=== PATIENT | female | born 1950 | race Caucasian/White ===

== ENCOUNTER 2018-04-09 07:04 | Inpatient (IN) ==
--- NOTE | 2018-04-08 20:58 | Discharge Summary ---
<Nicole Zambrano E - Last Filed: 04/08/18 20:56> Date of Encounter: 04/08/18 - Discharge Diagnosis (1) Status post total replacement of right shoulder Priority: Primary Status: Acute (2) Rotator cuff tear arthropathy of right shoulder Priority: Primary Status: Chronic (3) Overactive bladder Priority: Secondary Status: Chronic (4) FAUSTINO (obstructive sleep apnea) Priority: Secondary Status: Chronic (5) Obesity Priority: Secondary Status: Chronic Qualifiers: Obesity type: unspecified obesity type Obesity classification: unspecified obesity classification Serious obesity comorbidity presence: unspecified whether serious comorbidity present Qualified Code(s): E66.9 - Obesity, unspecified (6) Lymphedema Priority: Secondary Status: Chronic (7) Hypertension Priority: Secondary Status: Chronic Qualifiers: Hypertension type: unspecified Qualified Code(s): I10 - Essential (primary ) hypertension - Hospital Course Hospital course: Ms. Alicea is a 67 year old female - Time Spent with Patient Total time spent providing and/or coordinating discharge services: - Discharge Medications Home Medications: OxyCODONE Immed Rel [Roxicodone 5 MG] 5 mg PO Q6HR PRN 7 Days #28 tablet [Rx] Aspirin 81 mg PO DAILY 04/09/18 [History] Chlorthalidone 12.5 mg PO DAILY 04/09/18 [History] Methylphenidate HCl [Metadate ER] 20 mg PO DAILY 04/09/18 [History] Metoprolol XL (24 HR) Succ [Toprol Xl] 25 mg PO BID 04/09/18 [History] Mirabegron [Myrbetriq] 50 mg PO DAILY 04/09/18 [History] Multivitamin [One Daily Essential] 1 tab PO DAILY 04/09/18 [History] Naproxen [Naprosyn] 500 mg PO BID 04/09/18 [History] PARoxetine HCl [Paroxetine HCl] 30 mg PO DAILY 04/09/18 [History] traZODone [TraZODone] 50 mg PO HS 04/09/18 [History] Allergies/Adverse Reactions: 3 Allergy/AdvReac Type Severity Reaction Status Date / Time Sulfa (Sulfonamide Allergy Swelling Verified 04/09/18 07:27 Antibiotics) of the Eye scopolamine AdvReac See Verified 04/09/18 07:27 Comments Primary care physician: Fabrice Bates MD - Patient Status Disposition: Transfer Inpatient Rehab Fac Condition: Good - Discharge Instructions Follow Up With: Fabrice Bates MD [Primary Care Provider] - <Estefany Castorenamyriam Riosh - Last Filed: 04/10/18 06:54> Orders not resulted at time of discharge: Pending orders 04/09/18 01:00 XR shoulder complete RT [XR] Routine Hemoglobin and Hematocrit [HEME] Routine Date of Encounter: 04/10/18 Time of Encounter: 06:53 - Discharge Diagnosis (1) Morbid obesity with BMI of 45.0-49.9, adult Priority: Secondary Status: Chronic (2) Rotator cuff tear arthropathy of right shoulder Priority: Primary Status: Chronic (3) Overactive bladder Priority: Secondary Status: Chronic (4) FAUSTINO (obstructive sleep apnea) Priority: Secondary Status: Chronic (5) Lymphedema Priority: Secondary Status: Chronic (6) Hypertension Priority: Secondary Status: Chronic Qualifiers: Hypertension type: unspecified Qualified Code(s): I10 - Essential (primary ) hypertension (7) Status post total replacement of right shoulder Priority: Primary Status: Acute - Hospital Course Hospital course: Ms. Alicea is a 67 year old female Status post right total shoulder replacement The patient had an uneventful postoperative course. They received antibiotics and physical therapy and were discharged in stable condition. There will follow -up in the office in 2 weeks. - Time Spent with Patient Total time spent providing and/or coordinating discharge services: Primary care physician: Fabrice Bates MD - Patient Status Functional capacity at discharge: independent ambulation Overall status at discharge: patient is progressing back to baseline
[2018-04-09] MEDS ORDERED: CeFAZolin Syr 2,000MG/20 ML 2,000 MG/20 ML SYRINGE IVPB ONE (07:32)
[2018-04-09] MEDS ORDERED: Lidocaine -MPF 4% 5 ML AMPUL ONE (07:33)
[2018-04-09] MEDS ORDERED: *HR* Propofol 200 MG/20 ML VIAL IVP ONE ×2 (07:34→10:13)
[2018-04-09] MEDS ORDERED: *HR* FentaNYL (PF) 100 MCG/2 ML VIAL ONE (07:34)
[2018-04-09] MEDS ORDERED: Dexamethasone 4 MG/ML VIAL ONE (07:34)
[2018-04-09] MEDS ORDERED: Ondansetron 4 MG/2 ML VIAL ONE (07:34)
[2018-04-09] MEDS ORDERED: *HR* Rocuronium Bromide 50 MG/5 ML VIAL ONE (07:34)
[2018-04-09] MEDS ORDERED: Lidocaine -MPF 2% 2 ML VIAL ONE (07:34)
[2018-04-09] MEDS ORDERED: *HR* Succinylcholine 200 MG/10 ML VIAL IVP ONE (07:34)
[2018-04-09] MEDS ORDERED: *HR* Midazolam HCl 2 MG/2 ML VIAL ONE (07:34)
[2018-04-09] MEDS ORDERED: Ringers Solution, Lactated 1,000 ML IVC SCH ×2 (07:45→12:25)
--- NOTE | 2018-04-09 07:52 | History & Physical Report ---
Date of Encounter: 04/09/18 Time of Encounter: 07:52 24 Hour HP Update - Instructions Instructions: If the History and Physical is less than 30 days old and was completed prior to A.M. admission and or procedure and has NOT been updated on calendar day of procedure please complete this update prior to performing procedure. - Update Patient reports changes in Medical Condition: No Changes in examination, assessment, or condition: No Changes in Medication: No Preop tests/diagnostics Reviewed: Yes Surgery Remains Indicated: Yes Consent for Planned Operative Procedure(s) Verified: Yes - Pre-Operative Checklist Preoperative Checklist Indicated: No Prophylactic Antibiotic Ordered: Yes Is VTE Prophylaxis Indicated?: Yes
[2018-04-09] MEDS ORDERED: Ethanol\\Acetic Acid\\Na Ace\\Ben 1,000 ML IRRIG.SOLN IR ONE (07:58)
[2018-04-09] MEDS ORDERED: Propofol 500 MG/50 ML INFUS..BTL ONE (08:01)
[2018-04-09] MEDS ORDERED: ROPIVACAINE HCL/PF 0.5% 30 ML VIAL ONE (08:04)
[2018-04-09] MEDS ORDERED: Bupivacaine/Clonidine Syringe 1 EACH SYRINGE ONE (08:05)
--- NOTE | 2018-04-09 08:06 | Anesthesia Evaluation PreOp ---
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 History: Denies Any Significant HX Other Medical History: Other (MORBID OBESITY BMI 45, NARCOLEPSY, JASMIN LE LYMPHEDEMA) Anesthesia History: Past Anesthesia, Problems (SLOW TO WAKE UP, PONV, URINE RETENTION WITH SCOP PATCH) Alcohol Use: none Drug use: none Medications and Allergies OxyCODONE Immed Rel [Roxicodone 5 MG] 5 mg PO Q6HR PRN 7 Days #28 tablet [Rx] Aspirin 81 mg PO DAILY 04/09/18 [History] Chlorthalidone 25 mg PO DAILY 04/09/18 [History] Methylphenidate HCl [Methylphenidate ER] 10 mg PO DAILY 04/09/18 [History] Metoprolol XL (24 HR) Succ [Toprol Xl] 25 mg PO BID 04/09/18 [History] Mirabegron [Myrbetriq] 50 mg PO DAILY 04/09/18 [History] Multivitamin [One Daily Essential] 1 tab PO DAILY 04/09/18 [History] Naproxen [Naprosyn] 500 mg PO BID 04/09/18 [History] PARoxetine HCl [Paroxetine HCl] 20 mg PO DAILY 04/09/18 [History] traZODone [TraZODone] 50 mg PO HS 04/09/18 [History] 3 Allergy/AdvReac Type Severity Reaction Status Date / Time Sulfa (Sulfonamide Allergy Swelling Verified 04/09/18 07:27 Antibiotics) of the Eye scopolamine AdvReac See Verified 04/09/18 07:27 Comments - Meds/Allergy Pre-op Review Medications Reviewed: Yes Allergies Reviewed: Yes Beta Blockers on Current Med List: Yes If Beta Blockers taken, Date/Time (Last Dose taken): AM Anesthesia Results - Labs CR 0.97, CA 9.3, K 4.0, HB 15 - Imaging EKG: report reviewed (NSR) Anesthesia Exam O2 Sat Height 1.6 m Height 1.6 m Weight 115.666 kg Weight 115.666 kg O2 Sat by Pulse Oximetry 96 Vital Signs Temp Pulse Resp BP Pulse Ox 98.3 F 58 18 138/72 96 04/09/18 07:29 04/09/18 07:29 04/09/18 07:29 04/09/18 07:29 04/09/18 07:29 NPO (# of Hours): 8 - HEENT Pupil (Motor): Pupils equal Mallampati: IV Teeth: Normal Oral Opening: Greater than 3 - Cardiac Rhythm: Regular - Pulmonary Breath Sounds: bilateral Clear Anesthesia Assess/Plan ASA Score: 3 Modified Joni Scale for Level of Consciousness: Cooperative, oriented, and tranquil Anesthetic Plan: General, Regional (FOR POST OP PAIN) Monitoring Plan: Standard Monitors Recovery Plan: PACU Anes Supervising Prov Stmt: Patient informed and consented. Risks, benefits, and alternatives discussed. Patient wishes to proceed.
--- NOTE | 2018-04-09 08:50 | Anesthesia Procedures ---
Date of Encounter: 04/09/18 Time of Encounter: 08:40 Procedures: Anesthesia - Nerve Block Procedure Date: 04/09/18 Time: 08:40 Allergies/Adv Reactions: sulfa, scopalomine patch Pre-op Diagnosis: Right Shoulder Rotator Cuff Arthropathy Surgical Procedure: Reverse Right Total Shoulder Arthroplasty Checklist: Correct Patient Identifier, Correct procedure, History checked Correct side: Right Blood Thinner: No Monitor Applied: EKG Supplemental Oxygen via Nasal Cannula (L/min): 3 Sedation: Versed (mg): 2 Sedation: Fentanyl (mcg): 100 Indication: Post Op Analgesia Block Type: Supraclavicular, Other (superficial cervical plexus) Catheter placed: No Sterile Technique: Yes Ultrasound used: Yes Anatomy identified: Yes Visual spread of Local: Yes Neuro Stimulation: No Blood on Needle Aspiration: No Smooth Injection of Local: Yes Pain with Injection of Local: No Prep: Chlorhexadine Needle: 22 x 50 mm Stimuplex (Pajunk Echogenic) Local: 0.25% Bupivicaine w/Clonidine 20 mcg/cc (10 ml used for superficial cervical), Ropivacaine (30 ml used for supraclavicular NB) Volume (cc): see above notes Number of Attempts: 1 Complications: None/effective block Vitals: SS throughout procedure
[2018-04-09] MEDS ORDERED: *HR* OxyCODONE Immed Rel 5 MG TABLET PO PRN (08:53)
[2018-04-09] MEDS ORDERED: *HR* Promethazine 25 MG/ML VIAL IVP PRN (08:53)
[2018-04-09] MEDS ORDERED: Acetaminophen IV 1,000 MG/100 ML INFUS..BTL ONE (08:56)
[2018-04-09] MEDS ORDERED: EPHEDrine 50 MG/ML VIAL ONE (09:30)
--- NOTE | 2018-04-09 10:07 | Orthopedic Operative Note ---
Date of procedure: 04/09/18 Pre-op diagnosis: Right shoulder cuff tear arthropathy Post-op diagnosis: same Procedure: Procedure: Total Shoulder Replacment Reverse, right Estimated blood loss: 100 cc Hardware: Metal and polyethylene replacement: Arthrex medium glenoid baseplate , 2 4.5 screws. 1 6.5 screw, 42+4 glenosphere, 6 humeral stem, poly insert 6 Exam Under anesthesia: Full motion no instability Procedural Notes: Irreparable tear subscapularis shoulder arthritis Operative procedure: The patient was brought to the operating room and placed on the operating room table. After general anesthesia was administered the operative shoulder was examined. Findings were noted. The patient was placed in the modified beachchair position. All pressure points were padded appropriately. And the head was stabilized in the neutral position. The operative extremity was prepped and draped in the sterile surgical fashion. The patient received IV antibiotics prior to skin incision. A standard deltopectoral approach was made to the operative shoulder. Incision was made to the skin and subcutaneous tissue,hemo stasis was obtained with Bovie cautery. Using careful blunt dissection the cephalic vein was identified and mobilized medially. The deltopectoral interval was developed and the clavipectoral fascia was incised. The subscap was torn and irreparable. The humerus was dislocated patient noted to have irreparable tear supraspinatus tendon, and the humeral cut was made along the anatomic neck. Patient noted to have grade 4 arthritic changes humeral head Anterior and posterior Bankart retractors were placed to expose the glenoid. Patient noted to have grade 4 through changes glenoid socket The glenoid guide was seated and the centering hole was made. It was reamed with the appropriate reamer. TheXbaseplate was seated and secured with (2) 4.5 screws and one 6.5 screw. The baseplate was irrigated and dried and the 42+4 Glenosphere was seated and secured with the Cantor taper. The Cantor taper was tested and found to be secure the humerus was redislocated and prepared with the diaphyseal reamers, followed by a broaching process up to the appropriate size 6 in the patient's anatomic version. The metaphyseal reamer was then utilized. Trial reduction found the shoulder to be relocatable. Trial components were removed and the 6 stem was impacted in place in the patient's anatomic version. Trial reduction found the shoulder to be relocatable and stable with the appropriate 6 [place] Trial component was removed and the real 6 José was seated and secured the shoulder was reduced. The shoulder had excellent motion and excellent stability and no evidence of dislocation. The deep tissue was irrigated with pulse irrigation. The PA close the shoulder. The deltopectoral interval was closed with a running #1 PDS suture, subcutaneous tissue was irrigated and closed with 0 PDS suture, the skin was closed with Dermabond. The patient was placed in a sterile dressing, abduction brace and extubated. The patient was then transferred to the recovery room in stable condition. Anesthesia: GETTorey Surgeon: Carl Castorena Was there an visitor services information assistant present: No Estimated blood loss (cc): 100 Condition: stable Disposition: PACU
[2018-04-09 10:52] LABS: Hematocrit 39.8 % (35.3-44.9); Hemoglobin 13.6 g/dL (11.5-15.4)
[2018-04-09] MEDS ORDERED: Sennosides 8.6 MG TABLET PO PRN (12:25)
[2018-04-09] MEDS ORDERED: *HR* OxyCODONE/APAP 5/325 TABLET PO PRN (12:25)
[2018-04-09] MEDS ORDERED: Temazepam 15 MG CAPSULE PO PRN (12:25)
[2018-04-09] MEDS ORDERED: MOM Conc 10 ML UD.LIQ PO PRN (12:25)
[2018-04-09] MEDS ORDERED: Naloxone 0.4 MG/ML INJ IVP PRN (12:25)
[2018-04-09] MEDS ORDERED: Ondansetron 4 MG/2 ML VIAL IVP PRN (12:25)
--- NOTE | 2018-04-09 17:20 | Anesthesia Evaluation Post Op ---
Date of Encounter: 04/09/18 Time of Encounter: 11:40 Notes: Patient's vital signs have been reviewed. Patient is stable postoperatively and has adequately recovered from anesthesia. Patient is determined to have stable airway patency and respiratory function including respiratory rate and oxygen saturation. Patient has a stable heart rate, blood pressure and adequate hydration. Patients mental status is acceptable. Patients temperature is appropriate. Pain and nausea are adequately controlled. - Discharge PostOp Status: Transfer Patient to floor
[2018-04-09] MEDS: *HR* Enoxaparin 30 MG/0.3 ML SYRINGE SQ SCH (17:23)
[2018-04-09] MEDS: CeFAZolin Pre 2,000 MG/100 ML 2,000 MG/100 ML BAG IVPB SCH ×2 (17:25→23:40)
[2018-04-09] MEDS: Aspirin 81 MG TAB.CHEW PO SCH (17:34)
[2018-04-09] MEDS: Multivit/Ca/Min/Fe/FA 1 TAB TABLET PO SCH (17:35)
[2018-04-09] MEDS: traMADol 50 MG TABLET PO PRN (17:37)
[2018-04-09] MEDS ORDERED: *HR* Enoxaparin 30 MG/0.3 ML SYRINGE SQ SCH (18:00)
[2018-04-09] MEDS: traZODone 50 MG TABLET PO SCH (21:19)
[2018-04-09] MEDS: Metoprolol XL (24 HR) Succ 25 MG TAB.ER.24H PO SCH (21:19)
[2018-04-10] MEDS: *HR* OxyCODONE Immed Rel 5 MG TABLET PO PRN ×5 (01:30→20:28)
[2018-04-10 02:04] LABS: Hematocrit 37.8 % (35.3-44.9); Hemoglobin 12.9 g/dL (11.5-15.4)
[2018-04-10] MEDS: *HR* Enoxaparin 30 MG/0.3 ML SYRINGE SQ SCH ×2 (05:56→18:32)
--- NOTE | 2018-04-10 06:53 | Orthopedics Progress Note ---
Date of Encounter: 04/10/18 Time of Encounter: 06:53 - Assessment and Plan (1) Morbid obesity with BMI of 45.0-49.9, adult Current Visit: Yes Status: Chronic (2) Rotator cuff tear arthropathy of right shoulder Current Visit: No Status: Chronic (3) Overactive bladder Current Visit: No Status: Chronic (4) FAUSTINO (obstructive sleep apnea) Current Visit: No Status: Chronic (5) Lymphedema Current Visit: No Status: Chronic (6) Hypertension Current Visit: No Status: Chronic Qualifiers: Hypertension type: unspecified Qualified Code(s): I10 - Essential (primary ) hypertension (7) Status post total replacement of right shoulder Current Visit: No Status: Acute Subjective Interval history: Patient was seen this morning doing well without complaints. Afebrile vital signs stable. Operative extremity: Neurovascularly intact Dressing clean dry and intact Calves nontender Assessment and plan: Continue with postoperative care Hematocrit 37 plan for discharge to [facility] Objective Vital signs: Vital Signs Temp Pulse Resp BP Pulse Ox 04/10/18 06:26 98.2 F 62 18 109/67 96 04/10/18 02:57 98.3 F 65 16 97/60 92 04/09/18 22:48 98.9 F 80 16 108/65 92 04/09/18 18:23 97.7 F 87 16 136/66 97 04/09/18 14:48 97.5 F L 74 16 136/80 96 04/09/18 13:15 96.8 F L 61 16 117/76 04/09/18 12:40 96.8 F L 64 16 132/88 04/09/18 12:07 96.5 F L 60 14 147/78 92 04/09/18 11:36 97.4 F L 66 20 134/72 95 04/09/18 11:26 97.4 F L 62 19 144/72 96 04/09/18 11:16 58 14 148/77 98 04/09/18 11:06 64 18 147/84 99 04/09/18 10:56 97.4 F L 64 18 156/84 98 04/09/18 10:46 71 18 163/94 96 04/09/18 10:36 71 19 155/88 96 04/09/18 10:26 97.1 F L 76 18 141/75 100 04/09/18 08:46 56 16 133/66 96 04/09/18 08:32 62 16 175/88 97 04/09/18 07:29 98.3 F 58 18 138/72 96 Intake and Output 04/09/18 04/09/18 04/10/18 15:59 23:59 07:59 Intake Total 20 / 20 100 / 100 Output Total 975 / 975 250 / 250 200 / 200 Balance -955 / -955 -150 / -150 -200 / -200 Intake: IV Fluids 20 / 20 100 / 100 Ancef Premix 2,000 MG/100 ML 2, 100 / 100 000 mg In 100 ml @ 200 mls/hr IVPB Q8HR BENNIE Rx#:[id number] Ancef Syringe 2,000 MG/20 ML 2, 20 / 20 000 mg In 20 ml @ 200 mls/hr IVPB PREOP ONE Rx#:[id number] Output: Urine 775 / 775 250 / 250 200 / 200 Estimated Blood Loss 200 / 200 Other: # Voids 1 Weight 118.388 kg Patient Weight 04/10/18 23:59 Weight 118.388 kg - Labs CBC & BMP: 04/10/18 01:43 - VTE Documentation of Mechanical Device: Venous foot pump, device Consult Discharge Plan - Plan Referrals: Fabrice Bates MD [Primary Care Provider] -
[2018-04-10] MEDS: Aspirin 81 MG TAB.CHEW PO SCH (08:13)
[2018-04-10] MEDS: Metoprolol XL (24 HR) Succ 25 MG TAB.ER.24H PO SCH ×2 (08:13→20:27)
[2018-04-10] MEDS: (Mirabegron [Myrbetriq] 50 MG) PO SCH (08:14)
[2018-04-10] MEDS: Multivit/Ca/Min/Fe/FA 1 TAB TABLET PO SCH (08:14)
[2018-04-10] MEDS: METHYLPHENIDATE HCL 10 MG PO SCH (08:14)
[2018-04-10] MEDS: traZODone 50 MG TABLET PO SCH (20:27)
[2018-04-10] MEDS: traMADol 50 MG TABLET PO PRN (21:37)
[2018-04-10] MEDS: Acetaminophen IV 1,000 MG/100 ML INFUS..BTL IVPB SCH (22:07)
[2018-04-11 02:00] LABS: Hemoglobin 12.4 g/dL (11.5-15.4)
[2018-04-11] MEDS: *HR* OxyCODONE Immed Rel 5 MG TABLET PO PRN ×3 (02:39→19:52)
[2018-04-11] MEDS: traMADol 50 MG TABLET PO PRN ×2 (04:13→16:45)
[2018-04-11] MEDS: Acetaminophen IV 1,000 MG/100 ML INFUS..BTL IVPB SCH ×3 (04:13→16:44)
[2018-04-11] MEDS: *HR* Enoxaparin 30 MG/0.3 ML SYRINGE SQ SCH ×2 (06:42→16:46)
[2018-04-11] MEDS: Multivit/Ca/Min/Fe/FA 1 TAB TABLET PO SCH (08:20)
[2018-04-11] MEDS: Metoprolol XL (24 HR) Succ 25 MG TAB.ER.24H PO SCH (08:21)
[2018-04-11] MEDS: METHYLPHENIDATE HCL 10 MG PO SCH (08:21)
[2018-04-11] MEDS: Aspirin 81 MG TAB.CHEW PO SCH (08:21)
[2018-04-11] MEDS: (Mirabegron [Myrbetriq] 50 MG) PO SCH (08:21)
--- NOTE | 2018-04-11 08:55 | Orthopedics Progress Note ---
Date of Encounter: 04/11/18 Time of Encounter: 08:54 - Assessment and Plan (1) Morbid obesity with BMI of 45.0-49.9, adult Current Visit: Yes Status: Chronic (2) Rotator cuff tear arthropathy of right shoulder Current Visit: No Status: Chronic (3) Overactive bladder Current Visit: No Status: Chronic (4) FAUSTINO (obstructive sleep apnea) Current Visit: No Status: Chronic (5) Lymphedema Current Visit: No Status: Chronic (6) Hypertension Current Visit: No Status: Chronic Qualifiers: Hypertension type: unspecified Qualified Code(s): I10 - Essential (primary ) hypertension (7) Status post total replacement of right shoulder Current Visit: No Status: Acute Subjective Interval history: Patient was seen this morning doing well without complaints. Afebrile vital signs stable. Operative extremity: Neurovascularly intact Dressing clean dry and intact Calves nontender Assessment and plan: Continue with postoperative care plan for discharge to [facility] Objective Vital signs: Vital Signs Temp Pulse Resp BP Pulse Ox 04/11/18 07:34 97.5 F L 53 16 122/70 94 04/11/18 04:06 97.9 F 57 18 126/61 90 04/10/18 23:37 98.1 F 58 18 128/73 90 04/10/18 18:40 97.5 F L 60 15 107/54 91 04/10/18 15:38 97.7 F 60 18 136/72 96 04/10/18 11:36 98.1 F 57 18 99/62 94 Intake and Output 04/10/18 04/11/18 04/11/18 23:59 07:59 15:59 Intake Total 1340 / 1340 Balance 1340 / 1340 Intake: IV Fluids 100 / 100 Ofirmev 1,000 mg/100 ml 1,000 100 / 100 mg In 100 ml @ 400 mls/hr IVPB Q6H BENNIE Rx#:[id number] Oral 1240 / 1240 Other: Meal Dinner Percent of Meal Consumed 100% # Voids 2 Weight 120.202 kg - Labs CBC & BMP: 04/11/18 01:33 - VTE Documentation of Mechanical Device: Venous foot pump, device Consult Discharge Plan - Plan Referrals: Fabrice Bates MD [Primary Care Provider] -
[2018-04-11 16:09] VITALS: BP 117/73
[2018-04-11] MEDS ORDERED: Acetaminophen IV 1,000 MG/100 ML INFUS..BTL IVPB SCH (20:52)
--- NOTE | 2018-04-12 17:57 | Physician Discharge Referral ---
ExtendedCare Referral Info Transfer To: [facility] Provider in Charge: Dr. Castorena - Diagnosis (1) Status post total replacement of right shoulder Priority: Primary Status: Acute (2) Rotator cuff tear arthropathy of right shoulder Priority: Primary Status: Chronic (3) Overactive bladder Priority: Secondary Status: Chronic (4) FAUSTINO (obstructive sleep apnea) Priority: Secondary Status: Chronic (5) Obesity Priority: Secondary Status: Chronic (6) Lymphedema Priority: Secondary Status: Chronic (7) Hypertension Priority: Secondary Status: Chronic Expected Duration of Placement: less than 30 days Prognosis: Good Aware of Diagnosis: Patient Aware of Prognosis: Patient - Transfer Medications Home Medications: OxyCODONE Immed Rel [Roxicodone 5 MG] 5 mg PO Q6HR PRN 7 Days #28 tablet [Rx] Aspirin 81 mg PO DAILY 04/09/18 [History] Chlorthalidone 12.5 mg PO DAILY 04/09/18 [History] Methylphenidate HCl [Metadate ER] 20 mg PO DAILY 04/09/18 [History] Metoprolol XL (24 HR) Succ [Toprol Xl] 25 mg PO BID 04/09/18 [History] Mirabegron [Myrbetriq] 50 mg PO DAILY 04/09/18 [History] Multivitamin [One Daily Essential] 1 tab PO DAILY 04/09/18 [History] Naproxen [Naprosyn] 500 mg PO BID 04/09/18 [History] PARoxetine HCl [Paroxetine HCl] 30 mg PO DAILY 04/09/18 [History] traZODone [TraZODone] 50 mg PO HS 04/09/18 [History] Allergies/Adverse Reactions: 3 Allergy/AdvReac Type Severity Reaction Status Date / Time Sulfa (Sulfonamide Allergy Swelling Verified 04/09/18 07:27 Antibiotics) of the Eye scopolamine AdvReac See Verified 04/09/18 07:27 Comments - Respiratory Orders Smoking Cessation: Smoking cessation has been advised. For more information, call the [employer] Quit Line at 4-785-GUKDNOW. - Ancillary Orders May use pressure relief devices daily prn, May go on NEMO w/family/respon libertarian w /meds at nurse discretion PRN, May consult with Dentist, Test Technician, Instructional Technology Specialist PRN - Mobility Orders Chair, Ambulate - Rehabiliation Orders Rehab Potential: Good Rehab Orders: Evaluation for Physical Therapy, Evaluation for Occupational Therapy Other: PT/OT. NWB to affected upper extremity. Follow Shoulder Precautions x 6 weeks. Stay in brace during activity and at night. Remove brace during exercises. ICE and elevate extremity frequently throughout the day. - Treatments Skin tear care topically daily PRN per policy List/Other: Opsite placed. Keep dressing intact until first follow up appointment. If greater than 50% saturated, notify office, remove dressing and place appropriate dressing back in place. Leave Zipline intact. Opsite dressing is water resistant, not water-proof. OK to shower, but do not get dressing wet. - Diet Orders Regular CERTIFICATION: I certify that the transfer of the above named patient to an Extended Care Facility is necessary for the continuing treatment of the diagnosis listed. The above information is true and accurate reflection of patient's current condition. Confidential - Redisclosure prohibited without a patient's written consent.
== END 2018-04-11 19:55 | DRG 483 ==
LOC: SAMDAY 07:04 → 3NENU 11:56
PROVIDERS: ADMIT Orthopaedic Surgery; ATTEND Orthopaedic Surgery